=== PATIENT | female | born 1945 | race Asian ===

== ENCOUNTER 2016-05-05 12:33 | Observation (INO) | payer MEDICARE ==
[2016-05-05] VITALS (8 sets, daily range): BP systolic 113–138; BP diastolic 71–79; PULSE 73–92; RESP 14–20; TEMP 97.7–98; O2SAT 97–98
[~2016-05-05] VITALS: Ht 157.5 cm; Wt 51.0 kg
[~2016-05-05 12:33] MED LIST: CEFU1TAB42 PO; CELE200 PO; DUONI INH; FAMO20 PO; LEVO.05 PO; MONT10TA2 PO; NEBUMIS6 INH; OMPR20CCR PO; OYST500T71 PO; PRED20 PO; ZOLP1TAB32 PO
[2016-05-05] MEDS ORDERED: SODIUM CHLOR 0.9% 1000 ML INJ 1,000 ML IV ONE (13:30)
[2016-05-05] MEDS ORDERED: SODIUM CHLORIDE 0.9% FLUSH 5 ML FLUSH IVF PRN ×2 (13:30→19:30)
--- NOTE | 2016-05-05 13:36 | PD ---
HPI Chief Complaint: Abdominal Pain Time Seen by Provider: 13:25 Travel History International Travel<30 days: No Contact w/Intl Traveler<30days: No Traveled to known affect area: No History of Present Illness HPI The patient was seen and examined in the presence of the nurse. This patient is worried about bowel obstruction. She's had abdominal cramping for about 24 hours. She has an ileostomy from an operation many years ago for ulcerative colitis. She has not emptied the ileostomy today and she usually does it a few times daily. She is not vomiting or having fever. Minimal nausea. Symptoms severity is moderate. No alleviating factors. PFSH Past Medical History Arthritis: No Asthma: No Autoimmune Disease: No Anxiety: No Depression: No Heart Rhythm Problems: No Cancer: No Cardiovascular Problems: No High Cholesterol: No Chemotherapy: No Chest Pain: No Congestive Heart Failure: No COPD: Yes (PULMONARY FIBROSIS) Cerebrovascular Accident: No Diabetes: No Endocrine: Yes Gastrointestinal Disorders: Yes (ULCERATIVE COLITIS) GERD: No Genitourinary: No Hepatitis: Yes (hx of hep c) Hiatal Hernia: No Immune Disorder: No Kidney Stones: Yes (MANY YRS AGO) Musculoskeletal: Yes Neurologic: No Psychiatric: No Reproductive: No Respiratory: No Migraines: No Radiation Therapy: No Seizures: No Sleep Apnea: No Thyroid Disease: Yes (HYPOTHYROID) Ulcer: No Past Surgical History Abdominal Surgery: Yes (COLECTOMY, ILEOSTOMY) Cardiac Surgery: No Ear Surgery: No Endocrine Surgery: No Eye Surgery: No (KULWINDER CATARACTS) Genitourinary Surgery: No Gynecologic Surgery: No Oral Surgery: No Pacemaker: No Thoracic Surgery: No Social History Alcohol Use: No Tobacco Use: No Substance Use: No Allergies-Medications (Allergen,Severity, Reaction): Coded Allergies: No Known Allergies (Unverified , 05/05/16) Reported Meds & Prescriptions Reported Meds & Active Scripts Active Reported Amitriptyline (Amitriptyline HCl) 10 Mg Tab 5 Mg PO HS Ambien (Zolpidem Tartrate) 5 Mg Tab 5 Mg PO HS PRN Prilosec (Omeprazole) 20 Mg Cap 20 Mg PO DAILY Zyrtec Allergy (Cetirizine HCl) 10 Mg Cap 10 Mg PO DAILY Prednisone 1 Mg Tab 3 Mg PO DAILY Review of Systems General / Constitutional: No: Fever Eyes: No: Visual changes HENT: No: Headaches Cardiovascular: No: Chest Pain or Discomfort Respiratory: No: Shortness of Breath Gastrointestinal: Positive: Nausea, Abdominal Pain Genitourinary: No: Dysuria Musculoskeletal: No: Pain Skin: No Rash Neurologic: No: Weakness Psychiatric: No: Depression Endocrine: No: Polydipsia Hematologic/Lymphatic: No: Easy Bruising Physical Exam Narrative GENERAL: Thin elderly patient with some abdominal cramping . SKIN: Warm and dry. HEAD: Atraumatic. Normocephalic. EYES: Pupils equal and round. No scleral icterus. No injection or drainage. ENT: No nasal bleeding or discharge. Mucous membranes pink and moist. NECK: Trachea midline. No JVD. CARDIOVASCULAR: Regular rate and rhythm. No murmur appreciated. RESPIRATORY: No accessory muscle use. Clear to auscultation. Breath sounds equal bilaterally. GASTROINTESTINAL: Abdomen soft, non-tender, nondistended. Hepatic and splenic margins not palpable. Ileostomy is in place, minimal output in the bag MUSCULOSKELETAL: No obvious deformities. No clubbing. No cyanosis. No edema. NEUROLOGICAL: Awake and alert. No obvious cranial nerve deficits. Motor grossly within normal limits. Normal speech. PSYCHIATRIC: Appropriate mood and affect; insight and judgment normal. Data Data Last Documented VS Vital Signs Date Time Temp Pulse Resp B/P Pulse Ox O2 Delivery O2 Flow Rate FiO2 05/05/16 14:55 73 14 138/77 98 Room Air 05/05/16 13:07 97.7 Orders Complete Blood Count With Diff (05/05/16 13:30) Comprehensive Metabolic Panel (05/05/16 13:30) Lipase (05/05/16 13:30) Prothrombin Time / Inr (Pt) (05/05/16 13:30) Act Partial Throm Time (Ptt) (05/05/16 13:30) Urinalysis - C+S If Indicated (05/05/16 13:30) Iv Access Insert/Monitor (05/05/16 13:30) NPO (05/05/16 13:30) Sodium Chloride 0.9% Flush (Ns Flush) (05/05/16 13:30) Sodium Chlor 0.9% 1000 Ml Inj (Ns 1000 M (05/05/16 13:30) Consult Vascular Access Team (05/05/16 ) Vascular Poc Ultrasound (05/05/16 ) Ct Abd/Pel W Iv Contrast(Rout) (05/05/16 15:11) Diatrizoate Liq (Md Lorrie Brown) (05/05/16 15:11) Resp Lab Draw Arterial Punctur (05/05/16 ) Labs Laboratory Tests Test 05/05/16 05/05/16 05/05/16 13:50 14:40 15:45 Urine Collection Type CLEAN CATCH Urine Color YELLOW Urine Turbidity CLEAR Urine pH 5.5 Urine Specific [place] 1.018 Urine Protein TRACE mg/dL Urine Glucose (UA) NEG mg/dL Urine Ketones NEG mg/dL Urine Occult Blood SMALL Urine Nitrite NEG Urine Bilirubin NEG Urine Leukocyte Esterase NEG Urine RBC 10-14 /hpf Urine WBC 3-5 /hpf Urine Squamous Epithelial 6-8 /hpf Cells Urine Bacteria RARE /hpf Urine Hyaline Casts 15-19 /lpf Microscopic Urinalysis Comment CULT NOT INDICATED Urine Collection Time 13:50 Prothrombin Time 11.5 SEC Prothromb Time International 1.0 RATIO Ratio Activated Partial 22.8 SEC Thromboplast Time White Blood Count 7.9 TH/MM3 Red Blood Count 4.18 MIL/MM3 Hemoglobin 11.9 GM/DL Hematocrit 34.6 % Mean Corpuscular Volume 82.8 FL Mean Corpuscular Hemoglobin 28.5 PG Mean Corpuscular Hemoglobin 34.4 % Concent Red Cell Distribution Width 14.4 % Platelet Count 330 TH/MM3 Mean Platelet Volume 6.8 FL Neutrophils (%) (Auto) 79.9 % Lymphocytes (%) (Auto) 15.0 % Monocytes (%) (Auto) 4.3 % Eosinophils (%) (Auto) 0.5 % Basophils (%) (Auto) 0.3 % Neutrophils # (Auto) 6.4 TH/MM3 Lymphocytes # (Auto) 1.2 TH/MM3 Monocytes # (Auto) 0.3 TH/MM3 Eosinophils # (Auto) 0.0 TH/MM3 Basophils # (Auto) 0.0 TH/MM3 CBC Comment DIFF FINAL Differential Comment MDM Medical Decision Making Medical Screen Exam Complete: Yes Emergency Medical Condition: Yes Medical Record Reviewed: Yes Differential Diagnosis Obstruction, ileus, colitis Narrative Course I have reviewed the patient's electronic medical record. IV access is very challenging. Multiple nurses tried multiple times without success. 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 I called and spoke with him. Workup is still pending and the case is checked out to Dr. Ceron to assist with disposition. Uvaldo Gonzales MD May 05, 2016 13:36
[2016-05-05] MEDS ORDERED: PRIL20CA9 PO (13:38)
[2016-05-05] MEDS ORDERED: ZYRT10CA PO (13:38)
[2016-05-05] MEDS ORDERED: AMBI5TAB PO (13:38)
[2016-05-05] MEDS ORDERED: AMIT10TA6 PO (13:38)
[2016-05-05] MEDS ORDERED: PRED1 PO (13:38)
[2016-05-05 14:59] LABS: BLOOD, URINE SMALL (NEG); GLUCOSE,URINE NEG (NEG); KETONE, URINE NEG (NEG); NITRITE,URINE NEG (NEG); PH, URINE 5.5 (5.0-8.5)
[2016-05-05 15:02] LABS: METHOD OF COLLECTION CLEAN CATCH; URINE COLOR YELLOW (YELLW/STRAW)
[2016-05-05 15:03] LABS: HYALINE CAST, URINE 15-19 /lpf (RARE)
[2016-05-05 15:04] LABS: BACTERIA, URINE RARE /hpf; COMMENT (UR) CULT NOT INDICATED; CULTURE IF INDICATED CULT NOT INDICATED
[2016-05-05] MEDS ORDERED: DIATRIZOATE MEGLUM/DIATRIZOATE SOD 9 ML CUP ONE (15:11)
[2016-05-05 15:52] LABS: AUTOMATED NEUTROPHIL # 6.4 TH/MM3 (1.8-7.7); BASOPHIL % 0.3 % (0.0-2.0); EOSINOPHIL % 0.5 % (0.0-4.0); HEMATOCRIT 34.6 % (35.0-46.0); HEMO FLAGS DIFF FINAL; LYMPHOCYTE # 1.2 TH/MM3 (1.0-4.8); MEAN CELL VOLUME 82.8 FL (80.0-100.0); MEAN CORPUSCULAR HEMOGLOBIN 28.5 PG (27.0-34.0); MEAN CORPUSCULAR HGB CONC 34.4 % (32.0-36.0); MONO % 4.3 % (0.0-8.0); NEUT % 79.9 % (16.0-70.0); PLATELET COUNT 330 TH/MM3 (150-450); RED BLOOD COUNT 4.18 MIL/MM3 (4.00-5.30); RED CELL DISTRIBUTION WIDTH 14.4 % (11.6-17.2); WHITE BLOOD COUNT 7.9 TH/MM3 (4.0-11.0)
[2016-05-05 16:06] LABS: APTT (PATIENT) 22.8 SEC (24.3-30.1); PROTHROMBIN TIME - PATIENT 11.5 SEC (9.8-11.6)
[2016-05-05 17:26] LABS: BLOOD UREA NITROGEN 11 MG/DL (7-18); GLOMERULAR FILTRATION RATE 124 ML/MIN (>89)
[2016-05-05 17:27] LABS: ALKALINE PHOSPHATASE 45 U/L (45-117); ALT (GPT) 25 U/L (10-53); ANION GAP 9 MEQ/L (5-15); AST (GOT) 38 U/L (15-37); BICARBONATE 24.7 MEQ/L (21.0-32.0); CHLORIDE 98 MEQ/L (98-107); POTASSIUM 3.6 MEQ/L (3.5-5.1); SODIUM (NA) 132 MEQ/L (136-145); TOTAL BILIRUBIN ADULT 0.5 MG/DL (0.2-1.0)
--- NOTE | 2016-05-05 17:36 | PD ---
Physical Exam Narrative Patient was seen by ED physician and signed out to me. Data Data Last Documented VS Vital Signs Date Time Temp Pulse Resp B/P Pulse Ox O2 Delivery O2 Flow Rate FiO2 05/05/16 18:50 92 16 130/72 98 Room Air 05/05/16 13:07 97.7 Orders Complete Blood Count With Diff (05/05/16 13:30) Comprehensive Metabolic Panel (05/05/16 13:30) Lipase (05/05/16 13:30) Prothrombin Time / Inr (Pt) (05/05/16 13:30) Act Partial Throm Time (Ptt) (05/05/16 13:30) Urinalysis - C+S If Indicated (05/05/16 13:30) Iv Access Insert/Monitor (05/05/16 13:30) NPO (05/05/16 13:30) Sodium Chloride 0.9% Flush (Ns Flush) (05/05/16 13:30) Sodium Chlor 0.9% 1000 Ml Inj (Ns 1000 M (05/05/16 13:30) Consult Vascular Access Team (05/05/16 ) Vascular Poc Ultrasound (05/05/16 ) Ct Abd/Pel W Iv Contrast(Rout) (05/05/16 15:11) Diatrizoate Liq ( Gastroview Liq) (05/05/16 15:11) Resp Lab Draw Arterial Punctur (05/05/16 ) Sodium Chlor 0.9% 1000 Ml Inj (Ns 1000 M (05/05/16 19:15) Pantoprazole Inj (Protonix Inj) (05/05/16 19:15) Labs Laboratory Tests Test 05/05/16 05/05/16 05/05/16 13:50 14:40 15:45 Urine Collection Type CLEAN CATCH Urine Color YELLOW Urine Turbidity CLEAR Urine pH 5.5 Urine Specific [place] 1.018 Urine Protein TRACE mg/dL Urine Glucose (UA) NEG mg/dL Urine Ketones NEG mg/dL Urine Occult Blood SMALL Urine Nitrite NEG Urine Bilirubin NEG Urine Leukocyte Esterase NEG Urine RBC 10-14 /hpf Urine WBC 3-5 /hpf Urine Squamous Epithelial 6-8 /hpf Cells Urine Bacteria RARE /hpf Urine Hyaline Casts 15-19 /lpf Microscopic Urinalysis Comment CULT NOT INDICATED Urine Collection Time 13:50 Prothrombin Time 11.5 SEC Prothromb Time International 1.0 RATIO Ratio Activated Partial 22.8 SEC Thromboplast Time White Blood Count 7.9 TH/MM3 Red Blood Count 4.18 MIL/MM3 Hemoglobin 11.9 GM/DL Hematocrit 34.6 % Mean Corpuscular Volume 82.8 FL Mean Corpuscular Hemoglobin 28.5 PG Mean Corpuscular Hemoglobin 34.4 % Concent Red Cell Distribution Width 14.4 % Platelet Count 330 TH/MM3 Mean Platelet Volume 6.8 FL Neutrophils (%) (Auto) 79.9 % Lymphocytes (%) (Auto) 15.0 % Monocytes (%) (Auto) 4.3 % Eosinophils (%) (Auto) 0.5 % Basophils (%) (Auto) 0.3 % Neutrophils # (Auto) 6.4 TH/MM3 Lymphocytes # (Auto) 1.2 TH/MM3 Monocytes # (Auto) 0.3 TH/MM3 Eosinophils # (Auto) 0.0 TH/MM3 Basophils # (Auto) 0.0 TH/MM3 CBC Comment DIFF FINAL Differential Comment Sodium Level 132 MEQ/L Potassium Level 3.6 MEQ/L Chloride Level 98 MEQ/L Carbon Dioxide Level 24.7 MEQ/L Anion Gap 9 MEQ/L Blood Urea Nitrogen 11 MG/DL Creatinine 0.49 MG/DL Estimat Glomerular Filtration 124 ML/MIN Rate Random Glucose 98 MG/DL Calcium Level 9.3 MG/DL Total Bilirubin 0.5 MG/DL Aspartate Amino Transf 38 U/L (AST/SGOT) Alanine Aminotransferase 25 U/L (ALT/SGPT) Alkaline Phosphatase 45 U/L Total Protein 8.7 GM/DL Albumin 3.8 GM/DL Lipase 243 U/L [facility] Supervised Visit with LUPE: No Interpretation(s) 1735 PM. CBC within normal limit. Sodium 132. Creatinine 0.49. UA positive for RBC and bacteria. 1844 PM. Last Impressions Abdomen/Pelvis CT 05/05/16 1511 Signed Impressions: Service Date/Time: Thursday, May 05, 2016 17:46 - CONCLUSION: 1. Stable fluid-filled and some degree of fecalization loops of small bowel not significantly changed since 2012 probably chronic ileus. 2. Small lingular nodule, repeat noncontrast chest CT is suggested in 6 months as a conservative follow up. Isidro Song MD Diagnosis Primary Impression: Ileus Admitting Information Admitting Physician Requests: Observation Patient Instructions: General Instructions Additional Instruction: Continue with all medications. Follow-up with personal physician. Return if persistent problem or worse. Disposition: 01 DISCHARGE HOME Condition: Stable Arnold Ceron MD May 05, 2016 17:36
--- NOTE | 2016-05-05 18:30 | RADHPO ---
EXAM DATE/TIME: 05/05/2016 17:46 [place] COMPARISON: CT PULMONARY ANGIOGRAM, January 18, 2014, 18:55. CT ABDOMEN & PELVIS W CONTRAST, November 21, 2012, 8: 29. INDICATIONS : Diffuse abdominal cramping. IV CONTRAST: 95 cc Omnipaque 350 (iohexol) IV ORAL CONTRAST: Prescribed oral contrast ingested. RADIATION DOSE: 5.21 CTDIvol (mGy) MEDICAL HISTORY : Ulcerative colitis. Hepatitis C. SURGICAL HISTORY : Colectomy. Iliostomy. ENCOUNTER: Initial ACUITY: 1 day PAIN SCALE: 7/10 LOCATION: Abdomen. TECHNIQUE: Volumetric scanning of the abdomen and pelvis was performed. Using automated exposure control and ad justment of the mA and/or kV according to patient size, radiation dose was kept as low as reasonably achievable to obtain optimal diagnostic quality images. FINDINGS: CT Abdomen: The liver, spleen, pancreas, adrenals are unremarkable. There is no evidence for any appr eciable pathological adenopathy, free fluid. There are chronic interstitial changes in lung bases, ho wever overall improved since the prior CT angiogram from 2013 with one small nodular density in the l ingula measuring 1.1 cm in size this was partially identified previously probably benign. There are s imple cysts in both kidneys the largest one on the left measuring 2.2 cm in size. There is evidence f or prior colectomy with ostomy site on the right side. There are distended loops of small bowel with fluid within them and some degree of fecalization and maximum diameter of 2.8 cm not significantly ch anged since 2012 probably an ileus. The distal portion of the small bowel which inserts into the ileo stomy site appears slightly collapsed, however obstruction is not suspected and the appearance is sim ilar to the prior study. CT pelvis: There is no evidence for mass, abscess formation, or any significant adenopathy within the pelvis. CONCLUSION: 1. Stable fluid-filled and some degree of fecalization loops of small bowel not significantly changed since 2012 probably chronic ileus. 2. Small lingular nodule, repeat noncontrast chest CT is suggested in 6 months as a conservative foll ow up. Isidro Song MD on May 05, 2016 at 18:17 Board Certified Radiologist. This report was verified electronically.
[2016-05-05] MEDS ORDERED: SODIUM CHLOR 0.9% 1000 ML INJ 1,000 ML IV SCH (19:15)
[2016-05-05] MEDS ORDERED: PANTOPRAZOLE SODIUM 40 MG VIAL IV PUSH ONE (19:15)
[2016-05-05] MEDS ORDERED: ONDANSETRON HCL 4 MG/2 ML VIAL IV PRN (19:30)
[2016-05-05] MEDS ORDERED: ACETAMINOPHEN 325 MG TAB PO PRN (19:30)
[2016-05-05] MEDS: SODIUM CHLORIDE 0.9% FLUSH 5 ML FLUSH IVF SCH (21:00)
[2016-05-05] MEDS ORDERED: KETOROLAC TROMETHAMINE 30 MG/ML (IVP) VIAL IV PUSH ONE (21:15)
[2016-05-05] MEDS ORDERED: IOHEXOL 350 MG/ML 10 ML VIAL (for RAD DIAG) IV ONE (21:38)
[2016-05-05] MEDS ORDERED: ONDANSETRON HCL 4 MG/2 ML VIAL IV PUSH PRN (22:00)
[2016-05-05] MEDS ORDERED: ZOLPIDEM TARTRATE 5 MG TAB PO PRN (22:00)
[2016-05-05] MEDS ORDERED: DEXT 5%-NACL 0.45% 1000 ML INJ 1,000 ML IV SCH (22:00)
[2016-05-05] MEDS: FAMOTIDINE 20 MG/2 ML VIAL IV PUSH SCH (22:06)
[2016-05-06 04:00] VITALS: BP 117/76; PULSE 71; RESP 12; TEMP 97.4; O2SAT 98
[2016-05-06 08:00] VITALS: BP 131/81; PULSE 86; RESP 18; TEMP 97.2; O2SAT 96
[2016-05-06 08:25] VITALS: PULSE 74
[2016-05-06 08:43] LABS: BICARBONATE 25.2 MEQ/L (21.0-32.0)
[2016-05-06] MEDS ORDERED: CETIRIZINE HCL 10 MG TAB PO SCH (09:00)
[2016-05-06] MEDS ORDERED: predniSONE 1 MG TAB PO SCH (09:00)
[2016-05-06] MEDS: FAMOTIDINE 20 MG/2 ML VIAL IV PUSH SCH (10:24)
[2016-05-06] MEDS: SODIUM CHLORIDE 0.9% FLUSH 5 ML FLUSH IVF SCH (10:26)
[2016-05-06] MEDS ORDERED: POTASSIUM CL 40 MEQ/30 ML LIQ UDC PO ONE (11:00)
[2016-05-06] MEDS ORDERED: PANTOPRAZOLE SOD 20 MG DELAYED RELEASE TAB PO SCH (11:00)
[2016-05-06 12:00] VITALS: BP 124/45; PULSE 79; RESP 18; TEMP 96.2; O2SAT 93
--- NOTE | 2016-05-06 12:04 | MH ---
cc: TY PADILLA MD DATE OF ADMISSION: 05/05/2016 CHIEF COMPLAINT: Abdominal pain. HISTORY OF PRESENT ILLNESS: This is a 71-year-old female with past medical-surgical history significant for history of acute ulcerative colitis in 1969 with ileostomy done, history of pulmonary fibrosis on chronic steroid therapy, history of kidney stone in the past, hypothyroidism, history of depression, insomnia, gastroesophageal reflux disease (GERD), history of ileostomy, bilateral cataract surgery who came to the emergency room [facility] complaining of abdominal pain. The patient had had abdominal cramping for the last 24 hours. He had an ileostomy operation many years ago for ulcerative colon and today and usually does a few times daily. She is not vomiting or having any fever. Minimal nausea which was totally resolved. Abdominal pain was moderate in intensity. No radiation. Diffuse. No aggravating factors. Relieved by pain medicine. When I examined the patient, the abdominal pain was totally resolved and she wants to go [place]. 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 Other than that, nothing significant. PAST MEDICAL HISTORY / PAST SURGICAL HISTORY: Her past medical-surgical history as dictated above. SOCIAL HISTORY: Denies smoking or drinking. Does not take any drugs. She lives at home with her . 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 ALLERGIES: NO KNOWN DRUG ALLERGIES. MEDICATIONS: 1. Amitriptyline 5 milligrams p.o. at bedtime. 2. Ambien 5 milligrams p.o. at bedtime. 3. Prilosec 20 milligrams p.o. daily. 4. Zyrtec 10 milligrams p.o. daily. 5. Prednisone 3 milligrams p.o. daily. REVIEW OF SYSTEMS: All review of systems negative at the time of the examination. PHYSICAL EXAMINATION: GENERAL: On physical exam, this is a 71-year-old female lying on the bed not in acute distress. VITAL SIGNS: Temperature is97.4, heart rate is 71, respirations 12, blood pressure 117/76, 02 saturation 98% at room air. HEAD, EYES, EARS, NOSE, THROAT: Normocephalic and atraumatic. Extraocular muscles intact. Pupils equal, round and reactive to light and accommodation. Oral mucosa moist. NECK: The neck is supple. No visible thyromegaly or neck mass. Trachea is central. CARDIOVASCULAR: Regular rate and rhythm. RESPIRATORY: Clear to auscultation bilaterally. ABDOMEN: Abdomen soft and nontender. Bowel sounds audible. EXTREMITIES: No cyanosis or clubbing. Full range of motion of all extremities. NEUROLOGIC: Awake, alert and oriented times four. No focal deficits. SKIN: Warm and dry. PSYCHIATRIC: The patient is cooperative. Mood and affect are normal. LABS: CBC is totally unremarkable except for hematocrit of 34.6, neutrophils 79.9 high. Basic metabolic profile totally unremarkable except for sodium of 132 low, potassium 3.0 low. Liver function tests show only the AST is high at 38. Total protein 8.7 high. Lipase 243. Albumin 3.8. PT 11.5. INR 1.0. APTT 22.8. Urine examination done shows 3 to 5 WBCs, 10 to 14 RBCs, small occult blood. IMAGING STUDIES: CT of the abdomen and pelvis was done and shows stable fluid-filled and some degree of loop of small bowel not significantly changed since 2012, probably chronic ileus, small lingular nodule. Repeat noncontrast CT chest is suggested in six months as conservative followup. ASSESSMENT AND PLAN: 1. This is a 71-year-old female who came to the emergency room and diagnosed with abdominal pain most likely secondary to ileus. The patient said that she has no abdominal pain and she also has some colostomy output. Most likely the ileus has resolved. GI consulted. Further recommendations per GI. Can discharge if okay with gastroenterology. Start the patient on a clear liquid diet and ___ as tolerated. 2. History of insomnia. Continue home medications. 3. History of depression. Continue home medications. 4. History of allergies. Continue with Zyrtec. 5. History of pulmonary fibrosis. Continue with Prednisone. 6. History of gastroesophageal reflux disease (GERD). Protonix 20 milligrams p.o. daily and omeprazole 20 milligrams daily. 7. History of hypothyroidism. The patient is not on any thyroid medication. 8. History of ulcerative colitis. The patient is status post ileostomy. 9. DVT prophylaxis. SCDs. 10. GI prophylaxis. Famotidine 20 milligrams q. 12 hours. 11. Hypokalemia. We will replace potassium per protocol. 12. Hyponatremia. Will monitor sodium. We are going to manage the patient on a daily basis and make recommendations on a daily basis. Okay to discharge if okay with GI. Ty Padilla MD EA/EUNICE /10:33 AM /11:52 AM
--- NOTE | 2016-05-06 13:54 | MB ---
cc: FRIEDA TAM. EMERSON MITCHELL M.D. DATE OF CONSULTATION 05/06/2016 DATE OF [address] 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 The patient has a history of ulcerative colitis and underwent total colectomy with ileostomy placement in 1970. She has been doing fine with no medication. Three years ago she was admitted to the hospital with a small bowel obstruction that resolved after a week, spontaneously. Two days ago she began experiencing abdominal cramping with distension and complete cessation of ileostomy output. She came to the hospital and CT scan was reported as showing ileus given the fact that the appearance this time was pretty much the same as it was 3 years ago. I reviewed the images with a different radiologist, Dr. Cervantes, and a distal 15 cm of ileum is decompressed with the loops proximal to that being dilated suggesting a point of obstruction rather than an ileus. Today she is passing ileostomy output and her discomfort has improved significantly since 2 days ago and even since admission yesterday. She is feeling almost back to normal. 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 Surgery, rotator cuff, total colectomy. MEDICATIONS ON ADMISSION 1. Amitriptyline 5 milligrams at bedtime. 2. Ambien 5 milligrams at bedtime. 3. Prilosec 20 milligrams daily. 4. Zyrtec 10 milligrams daily. 5. Prednisone 3 milligrams daily. ALLERGIES None known to medications. SOCIAL HISTORY Tobacco use none, alcohol use none. FAMILY HISTORY Unremarkable for any GI disorders. REVIEW OF SYSTEMS No recent headaches. No history of seizures or strokes. No vision difficulties. No heartburn. No dysphagia. No odynophagia. No respiratory complaints. No cardiac complaints. No unexplained weight loss. No urinary symptoms. No history of pancreatic or liver disease. PHYSICAL EXAMINATION VITAL SIGNS: Temperature 97.4, pulse 74, respiratory rate 12, blood pressure 117/76. GENERAL: She is thin. She is alert. She is oriented x3. HEENT: She is anicteric. Extraocular motions are intact. LYMPH NODE SURVEY: I appreciate no submandibular, cervical, supraclavicular, axillary or epitrochlear adenopathy. LUNGS: Clear to auscultation. HEART: Heart exam regular rate and rhythm. No gross murmur or gallop. ABDOMEN: Abdominal exam normal to slightly diminished bowel sounds. No high-pitched bowel sounds. No audible bruit. The abdomen is soft and there is minimal tenderness with a left side of the abdomen with an intact ileostomy in the right lower quadrant. No hepatosplenomegaly noted. No masses are appreciated. EXTREMITIES: No pedal edema, Dupuytren's contractures or palmar erythema. LABORATORY FINDINGS On admission yesterday white count 7.9, hemoglobin 11.9, platelets 330, INR 1.0, sodium 132, potassium 3.0. Today sodium 132, potassium 3.6, liver enzymes normal though the AST is minimally elevated to 38. Alkaline phosphatase and bilirubin are normal. Albumin 3.8, lipase 243. Urinalysis 10-14 white cells with 3 to [address] scan shows dilated small intestine down to the distal 15 cm proximal to the ileum which is decompressed. The appearance a similar to 3 years ago and I suspect we are dealing with a recurrent obstruction process rather than a chronic ileus process. ASSESSMENT/PLAN It seems her symptoms have resolved already today and she is feeling almost back to normal. She is tolerating liquids with no nausea, vomiting, pain and ileostomy output has returned. From the GI standpoint she can be discharged home. She will stay on a liquid diet today and will slowly advance her diet over the next several days. She will follow up with me in the office. MD SHANNAN Thomas/KEKE /1:07 PM /1:33 PM
[2016-05-06] MEDS ORDERED: AMITRIPTYLINE HCL 10 MG TAB PO SCH (21:00)
== END 2016-05-06 14:49 | disposition home or self-care (01) ==
LOC: PHED 12:33 → PHEDA 19:15 → PH3A 22:21
PROVIDERS: ADMIT Family Medicine; ATTEND Family Medicine
DX: K56.7 Ileus, unspecified (principal); E87.6 Hypokalemia; E87.1 Hypo-osmolality and hyponatremia; K21.9 Gastro-esophageal reflux disease without esophagitis; J44.9 Chronic obstructive pulmonary disease, unspecified; E03.9 Hypothyroidism, unspecified; Z87.442 Personal history of urinary calculi
CPT/HCPCS: 36600; 74177; 80048; 80053; 81001; 83690; 85025; 85610; 85730; 96360; 96361; 99285; C9113; G0378; J1885; J7030; J7512; Q9963; Q9967